=== PATIENT | male | born 1970 | race African-American/Black ===

== ENCOUNTER 2017-08-24 09:24 | Emergency (ER) | payer OTHER ==
[~2017-08-24] VITALS: Ht 188 cm; Wt 104.3 kg
[~2017-08-24 09:24] MED LIST: COZAAR 25 MG TA25 M1; COZAAR 25 MG TA25 M2; FLEXERIL PO; NAPROSYN500 MG PO; NORCO 5-325 TA1 EACH PO
[2017-08-24 10:05] LABS: ABSOLUTE MONOCYTES 0.5 thou/uL (0.0-1.2); ABSOLUTE NEUTROPHILS 4.6 thou/uL (1.6-8.1); BASOPHILS 0.6 %; EOSINOPHILS 0.7 %; HEMOGLOBIN 16.1 gm/dL (14.0-18.0); LYMPHOCYTES 27.3 %; MCH 31.2 pg (26.0-34.0); MCHC 33.6 g/dL (28.0-37.0); MCV 92.8 fL (80.0-100.0); MONOCYTES 6.7 %; MPV 9.1 fl. (7.2-11.1); NUCLEATED RBCS 0 /100WBC; PLATELET COUNT* 200 thou/uL (150-400); POLYS 64.7 %; RBC 5.17 mil/uL (4.50-6.00); WBC 7.2 thou/uL (4.0-11.0)
[2017-08-24 10:09] LABS: ANION GAP 8 mmol/L (7-16); BUN 21 mg/dL (7-18); CALCIUM 9.2 mg/dL (8.5-10.1); CHLORIDE 105 mmol/L (98-107); CO2 27 mmol/L (21-32); CREATININE 1.4 mg/dL (0.6-1.3); GLUCOSE 99 mg/dL (70-99); POTASSIUM 4.2 mmol/L (3.5-5.1); SODIUM 140 mmol/L (136-145)
[2017-08-24 10:20] LABS: ALBUMIN 3.7 g/dL (3.4-5.0); ALKALINE PHOSPHATASE 73 U/L (46-116); LIPASE 725 U/L (73-393); NT-PRO BRAIN NAT PEPTIDE 10 pg/mL (<300); SGOT 23 U/L (15-37); SGPT 28 U/L (30-65); TOTAL BILIRUBIN 0.4 mg/dL (<0.1-1.0); TOTAL PROTEIN 7.9 g/dL (6.4-8.2); TROPONIN-I LEVEL <0.06 ng/mL (<0.06)
[2017-08-24 10:39] LABS: CHOLESTEROL 221 mg/dL (<200); HDL CHOLESTEROL 59 mg/dL (>40); LDL CHOLESTEROL 150 mg/dL (<100); SERUM ASSESSMENT Clear; TC:HDL 3.7 Ratio (Not establshd); TRIGLYCERIDE 63 mg/dL (<150); VLDL 13 mg/dL (<40)
[2017-08-24 11:29] VITALS: BP 147/85
--- NOTE | 2017-08-24 16:31 | EKG ---
[place] [address] ELECTROCARDIOGRAM REPORT Name: RAMONA MICHAEL Room: [facility]#: [id number] Admission: 08/24/17 Attend Phys: Discharge: 08/24/17 Date of : 74 Report #: [id number] THIS REPORT FOR: //name// [facility] ED Test Date: 2017-08-24 Test Time: 09:28:19 Pat Name: RAMONA MICHAEL Department: Room: Gender: M Gimp Tacker: : 1970 Requested By: Michel Ellis Order Number: [id number] MD: Elmo Mcknight Measurements Intervals [place] Rate: 69 P: 63 AR: 181 QRS: 59 QRSD: 87 T: 38 QT: 363 QTc: 389 Interpretive Statements Sinus rhythm Baseline wander in lead(s) II,aVR,aVF,V3,V6 Compared to ECG 07/17/2013 20:50:26 Sinus tachycardia no longer present Early repolarization no longer present Electronically Signed On 08-24-2017 16:30:52 CDT by Elmo Mcknight [email or web address] <ELECTRONICALLY SIGNED> By: Elmo Mcknight MD, [facility] 08/24/17 1630 0928 0928 Elmo Mcknight MD, [facility] /EPI
== END 2017-08-24 11:30 | disposition home or self-care (01) ==
LOC: M.ERS 09:24
PROVIDERS: Emergency Medicine
DX: K85.90 Acute pancreatitis without necrosis or infection, unspecified (principal); R51 Headache; I10 Essential (primary) hypertension; E78.00 Pure hypercholesterolemia, unspecified; Z88.8 Allergy status to other drugs, medicaments and biological substances